=== PATIENT | male | born 1960 | race Caucasian/White ===

== ENCOUNTER 2021-08-02 07:03 | Outpatient (REF) | payer MEDICARE, MEDICAID, SELFPAY ==
--- NOTE | ~2021-08-02 | XR_ITS ---
EXAMINATION: XR ANKLE, RIGHT CLINICAL INFORMATION: Pain in ankle and foot. COMPARISON: None TECHNIQUE: Right ankle is imaged in 3 views. FINDINGS: There is oblique fracture distal fibula. Distal fracture fragment is displaced laterally by under 3 mm. The medial and posterior malleoli are intact. Ankle mortise is symmetric. The talar dome shows no lesion. The retrocalcaneal recess is preserved. The subtalar joint is unremarkable. There are small posterior calcaneal spurs. XR/XR ankle RT min 3V IMPRESSION: Fracture lateral malleolus.
== END 2021-08-02 07:04 | disposition home or self-care (01) ==
LOC: HO.HOSX 07:03
PROVIDERS: Visit Provider Physician Assistant
DX: S82.831A Other fracture of upper and lower end of right fibula, initial encounter for closed fracture (principal)
CPT/HCPCS: 73610; 99202

== ENCOUNTER 2021-08-30 07:49 | Outpatient (REF) | payer MEDICARE, MEDICAID, SELFPAY | END 2021-08-30 07:50 | disposition home or self-care (01) | LOC: HO.HOSX 07:49 | PROVIDERS: Visit Provider Physician Assistant | DX: Z13.89 Encounter for screening for other disorder (principal) ==

== ENCOUNTER 2022-07-21 14:22 | Outpatient (REF) | payer MEDICARE, MEDICAID, SELFPAY ==
[2022-07-21 16:17] LABS: Hematocrit 36.3 % (42.0-52.0); Hemoglobin 12.1 g/dl (14.0-18.0); Mean Corpuscular HGB Conc 33.3 g/dl (31.0-36.0); Mean Corpuscular Hemoglobin 28.7 pg (27.0-33.0); Mean Platelet Volume 8.9 fL (9.4-12.4); Platelet Count 254 X10*3/uL (160-400); Red Blood Count 4.22 X10*6/uL (4.60-5.80); Red Cell Distribution Width 14.7 % (11.0-16.0); White Blood Count 7.5 X10*3/uL (4.8-10.8)
[2022-07-21 16:19] LABS: Prothrombin Time 11.7 SEC (10.0-13.1)
[2022-07-21 16:40] LABS: Alanine Aminotransferase 28 U/L (0-40); Albumin Level 4.6 g/dL (3.5-5.0); Alkaline Phosphatase 62 U/L (39-117); Aspartate Amino Transferase 31 U/L (5-37); Bilirubin Direct 0.2 mg/dL (0.0-0.5); Bilirubin Total 0.5 mg/dL (0.0-1.0)
[2022-07-24 04:52] LABS: HBS Num1 110.21 mIU/mL (0-7.99); HBc Num1 8.82 S/CO (0.00-0.79); HBsAGNum1 0.32 S/CO (0.00-0.99); HIV AB/AG Nonreactive (Nonreactive); HIV Num 1 0.05 S/CO (0.00-0.99); Hepatitis B Surface Antigen Negative (Negative); ~HepC Num1 14.33 S/CO (0.00-0.79); ~Hepatitis B Surface Antibody REACTIVE (Nonreactive); ~Hepatitis C Antibody Reactive (Nonreactive)
[2022-07-24 04:53] LABS: Hepatitis A Antibody IgG REACTIVE (Nonreactive); ~Hepatitis A Antibody IgG 7.61 S/CO (0.00-0.99)
[2022-07-24 05:37] LABS: HBc Num2 8.85 S/CO; HBc Num3 8.82 S/CO; Hepatitis B Core Antibody Reactive (Nonreactive)
== END 2022-07-21 14:23 | disposition home or self-care (01) ==
LOC: HO.LAB 14:22
PROVIDERS: PCP Nurse Practitioner Family; Visit Provider Internal Medicine
DX: Z01.818 Encounter for other preprocedural examination (principal); Z11.4 Encounter for screening for human immunodeficiency virus [HIV]; F10.90 Alcohol use, unspecified, uncomplicated; Z87.891 Personal history of nicotine dependence
CPT/HCPCS: 36415; 80076; 85027; 85610; 86704; 86706; 86708; 86803; 87340; 87389; 99202

== ENCOUNTER 2022-08-31 14:17 | Day surgery (SDC) | payer MEDICARE, MEDICAID, SELFPAY ==
[2022-08-29 11:17] VITALS: BMI 30.2
--- NOTE | 2022-08-31 14:48 | HO.ANESPROP2 ---
HPI - Anesthesia Eval Consult details Narrative: for colonoscopy [facility] Active Problems Active Problems: All Active Problems (Updated 08/29/22 @ 11:18 by Carlie Toscano RN) Closed fracture of right distal fibula (Acute) Alcohol use disorder (Acute) Colon cancer screening (Acute) Positive hepatitis C antibody test (Acute) Hepatitis B core antibody positive (Acute) Past Medical History Medical History (Updated 08/29/22 @ 11:18 by Carlie Toscano RN) Alcohol use disorder Depression Elevated cholesterol HTN (hypertension) Family History Family history of problems with anesthesia: No Surgical History Surgical History (Updated 08/29/22 @ 11:11 by Carlie Toscano RN) Surgical history unknown History of Problems with Anesthesia: No Social History Social History Household Members: None Alcohol intake: current Alcohol intake frequency: 3 or more drinks per day Patient Tobacco Use Status: Former Tobacco user Advance Directives: No Advance Directives Information Provided: Yes Meds Allergies Allergy/AdvReac Type Severity Reaction Status Date / Time Seasonal Allergies Allergy Mild Unknown Verified 07/21/22 14:29 Active Medications: Current Medications Lactated Ringer's (Lr) 1,000 mls @ 100 mls/hr IVCONT .Q10H ON LICENSE OF [facility] Home Medications Medication Instructions Recorded Confirmed Last Taken Type acetaminophen 500 mg tablet 500 mg PO DAILY 08/02/21 Unknown History cyclobenzaprine 5 mg tablet 5 mg PO TID PRN Muscle Spasm 08/02/21 08/29/22 Unknown History ibuprofen 800 mg tablet 800 mg PO TID 08/02/21 Unknown History quetiapine 25 mg tablet 25 mg PO BEDTIME 08/02/21 08/29/22 Unknown History sertraline 50 mg tablet 50 mg PO DAILY 08/02/21 08/29/22 Unknown History amlodipine 5 mg tablet 5 mg PO QAM 07/21/22 08/29/22 Unknown History clonidine HCl 0.1 mg tablet 0.1 mg PO BEDTIME 07/21/22 08/29/22 Unknown History gabapentin 300 mg capsule 300 mg PO DAILY 07/21/22 08/29/22 Unknown History hydrocortisone 2.5 % topical cream topical 07/21/22 Unknown History with perineal applicator ([facility]) losartan 25 mg tablet 25 mg PO QAM 07/21/22 Unknown History prazosin 1 mg capsule 1 mg PO BID 07/21/22 08/29/22 Unknown History rosuvastatin 10 mg tablet 10 mg PO BEDTIME 07/21/22 08/29/22 Unknown History sertraline 25 mg tablet 25 mg PO QAM 07/21/22 08/29/22 Unknown History sildenafil 50 mg tablet 50 mg PO DAILY erectile dysfunction 07/21/22 08/29/22 Unknown History telmisartan 20 mg tablet 20 mg PO QAM 07/21/22 08/29/22 Unknown History trazodone 50 mg tablet 50 mg PO BEDTIME 07/21/22 08/29/22 Unknown History bupropion HCl 150 mg 24 hr tablet, 300 mg PO QAM 08/29/22 08/29/22 Unknown History extended release cetirizine 10 mg tablet 10 mg PO QAM 08/29/22 08/29/22 Unknown History Exam Exam Date and Time: August 31, 2022 1448 Height,Weight and Vital Signs: Height 5 ft 6 in Weight 84.822 kg Airway Mallampati Class: II TM Dist: >3cm Neck ROM: Full Loose/Missing/Broken Teeth: Yes and Upper (upper middle 2 teeth are loose, working w his dentist.) Lungs: ok Other: ok Assessment and Plan Assessment Anesthesia Assessment: Anesthesia Plan Discussed and Chart Reviewed Final Anesthetic Review Family History of Problems with Anesthesia: No History of Problems with Anesthesia: No NPO: Yes ASA Class: II Final Preanesthetic Review: No Changes in Pt Med Stat, Meds/Allgs Chart Reviewed, Consent Obtained/Reviewed and Anes Risks/Benef Reviewed Patient Risk: Intermediate Procedure Risk: Low Anesthetic Plan Anesthetic Plan: MAC: and Agree w/ Assess. and Plan Disposition: Standard PACU
--- NOTE | 2022-08-31 14:57 | MHC.SHP ---
Pre-Procedural Eval Section A Date of Service: 08/31/22 Section B Chief Complaint: screening Details of Present Illness: PMH: etOH disorder HCV Ab + Elevated LFTs Relevant Social History: Alcohol Use Present Medications: see Short Stay Collaborative assessment History of Previous Operations: No relevant previous surgery Allergies: Allergies Allergy/AdvReac Type Severity Reaction Status Date / Time Seasonal Allergies Allergy Mild Unknown Verified 07/21/22 14:29 Review of Systems Review of Systems Comment: 10 point ROS negative Exam Exam Comment: Gen appear: No acute distress HEENT: no icterus Chest: No overt resp distress Abd: soft, nontender, nondistended Psych: Stable affect, answering questions appropriately Neuro: A/Ox3 noted to move all extremities spontaneously Ext: no peripheral edema Plan Diagnosis/Plan: Unchanged I have reviewed the history and physical and performed a pertinent physical examination on my patient. No changes have occurred unless specified. Time Spent With Patient Time: Total time managing care of this patient today ____ minutes.
--- NOTE | 2022-08-31 14:58 | P.OP_ITS ---
Operative Note Operative Note Date of Service: 08/31/22 Narrative: Procedure: Colonoscopy Indication: Screening Endoscopist: Brook Hernandez MD Anesthesia Provider: Satnam Isbell MD Anesthesia type: MAC Instrument: Olympus [id number]-H190L Consent: Indication, risks vs benefits, and alternatives were discussed with the patient who gave written informed consent to proceed. EKG, pulse, pulse oximetry and blood pressure were monitored throughout the procedure. Please see anesthesia flowsheet. Procedure: The patient was brought to the procedure room and placed in the left lateral decubitus position. IV medications were administered by the anesthesia provider in attendance. A digital rectal exam was performed which was normal. A distal attachment cap was affixed to the tip of the scope and the colonoscope was then inserted through the anus and advanced through the colon to the cecum at 70 cm,and terminal ileum. Appendiceal orifice and ileocecal valve were identified. Mucosa was carefully examined under high definition white light as the instrument was slowly withdrawn in a retrograde panoramic fashion. Retroflexion was performed in rectum. The procedure was not difficult. There were no immediate obvious complications. The quality of the prep was BBPS: 3+2+3 = adequate Withdrawal time 12 minutes. Limitations: No limitations. Findings: Mucosa: Normal to cecum and terminal ileum. Protruding lesions: * 1 sessile polyp of size 3 mm in transverse colon. Cold snare polypectomy was performed. The polyp was completely removed and retrieved. * 1 sessile polyp of size 4 mm in sigmoid colon. Cold snare polypectomy was performed. The polyp was completely removed and retrieved. * Medium internal hemorrhoids without stigmata of recent bleeding. Impression: 1. Normal colon and terminal ileum mucosa 2. Total of 2 polyps removed from transverse and sigmoid colon 3. Internal hemorrhoids Recommendations: - Follow path results. - Repeat colonoscopy in 7-10 years if polyps are adenomas. - Patient reminded of pending hepatitis work up again.
[2022-08-31 15:00] VITALS: BP 147/67; PULSE 72; RESP 20; TEMP 37.3; O2SAT 98; BMI 30.5
[2022-08-31 15:41] VITALS: BP 103/64; PULSE 70; RESP 18; TEMP 36.3; O2SAT 98
[2022-08-31 15:56] VITALS: BP 140/80; PULSE 66; RESP 20; TEMP 37.1; O2SAT 98
[2022-08-31 16:56] LABS: Iron 91 mcg/dL (45-160); Percent Iron Saturation 35 % (15-50); Total Iron Binding Capacity 259 mcg/dL (228-428); Unsaturated Iron Binding 168 ug/dL
[2022-08-31 17:10] LABS: Ferritin 176 ng/mL (20-250)
[2022-09-05 12:33] LABS: HCV RNA PCR Qn <1.18 NOT DETECTED Log IU/mL (NOT DETECTED); HCV RNA PCR Qn <15 NOT DETECTED IU/mL (NOT DETECTED)
== END 2022-08-31 16:36 | disposition home or self-care (01) ==
PROVIDERS: PCP Nurse Practitioner Family; Visit Provider Internal Medicine
PROC: 0DJD8ZZ Inspection of Lower Intestinal Tract, Via Natural or Artificial Opening Endoscopic (ICD-10-PCS; CPT 45378; principal; 2022-08-31 15:00)
DX: Z12.11 Encounter for screening for malignant neoplasm of colon (principal); D12.3 Benign neoplasm of transverse colon; D12.5 Benign neoplasm of sigmoid colon; K64.8 Other hemorrhoids; J30.2 Other seasonal allergic rhinitis; F32.A Depression, unspecified; I10 Essential (primary) hypertension; E78.00 Pure hypercholesterolemia, unspecified; Z79.899 Other long term (current) drug therapy; F10.90 Alcohol use, unspecified, uncomplicated; Z87.891 Personal history of nicotine dependence
CPT/HCPCS: 45385; 36415; 82728; 83540; 87522; 87902; 88305

== ENCOUNTER → 2022-08-31 14:17 | Outpatient (BNV) | payer MEDICARE, MEDICAID, SELFPAY | PROVIDERS: PCP Nurse Practitioner Family; Visit Provider Internal Medicine | DX: Z12.11 Encounter for screening for malignant neoplasm of colon (principal); D12.3 Benign neoplasm of transverse colon; D12.5 Benign neoplasm of sigmoid colon; K64.8 Other hemorrhoids | CPT/HCPCS: 45385 ==